=== PATIENT | male | born 1955 ===

== ENCOUNTER 2017-10-04 06:56 | Day surgery (SDC) | payer MEDICARE ==
[2017-09-23 14:01] VITALS: BMI 23.8
[2017-10-04] MEDS ORDERED: Lactated Ringer's 1,000 ML IV ONE (08:00)
[2017-10-04] MEDS ORDERED: Propofol 10 mg/ml Inj (20 ML) ONE (11:21)
[2017-10-04] MEDS ORDERED: Midazolam 2 MG/2 ML VIAL ONE (11:21)
[2017-10-04] MEDS ORDERED: cefTRIAXone (Rocephin) 1 gm Inj IM ONE (11:40)
[2017-10-04 15:21] VITALS: RESP 18
[2017-10-04 15:52] VITALS: BP 114/78; PULSE 76; TEMP 97.4; O2SAT 98
--- NOTE | 2017-10-04 21:25 | OP ---
PROCEDURE DATE: 10/04/2017 PREOPERATIVE DIAGNOSIS: Symptomatic benign prostatic hyperplasia. POSTOPERATIVE DIAGNOSIS: Symptomatic benign prostatic hyperplasia. PROCEDURE: GreenLight laser of the prostate. DESCRIPTION OF PROCEDURE: The patient was placed on the operating room table in dorsal lithotomy position. The area of the groin was draped and prepped in a sterile manner. He was given general anesthesia at this time followed by the introduction of the laser scope under direct vision per urethra into the bladder. Using the laser fiber identified the distal margin of the resection at the level of the verumontanum, when packing identified left and right ureteral orifices and then began the resection of the bladder neck towards the verumontanum, I started 80 mccullough, I finished at 120 mccullough. At the end of the procedure, there was clear opening from the verumontanum directly into the bladder. Blood loss was estimated less than 20 mL. At this time, a #22 three-way Askew was inserted. The patient was taken from the operating room in good condition. Monica Reece MD
== END 2017-10-04 16:00 | disposition home or self-care (01) ==
LOC: H.OPSURG 06:56
PROVIDERS: ATTEND Urology
DX: N40.1 Benign prostatic hyperplasia with lower urinary tract symptoms (principal); E78.5 Hyperlipidemia, unspecified; F41.9 Anxiety disorder, unspecified; N40.0 Benign prostatic hyperplasia without lower urinary tract symptoms
CPT/HCPCS: 52648; J0696; J1885; J2001; J2250; J2270; J2405; J2704; J3010; J7120

== ENCOUNTER 2018-02-22 09:59 | Emergency (ER) | payer OTHER, MEDICARE ==
[2018-02-22 09:59] VITALS: BMI 23.8
[2018-02-22 10:25] VITALS: RESP 18; O2SAT 97
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
[2018-02-22 13:31] VITALS: BP 108/78; PULSE 70; TEMP 97.7
== END 2018-02-22 13:25 | disposition home or self-care (01) ==
LOC: H.ER 09:59
DX: M54.5 Low back pain (principal); M54.2 Cervicalgia; V49.49XA Driver injured in collision with other motor vehicles in traffic accident, initial encounter

== ENCOUNTER 2018-05-18 07:26 | Emergency (ER) | payer MEDICARE, OTHER ==
[2018-05-18 07:44] VITALS: BMI 22.8
[2018-05-18 07:46] VITALS: TEMP 97
--- NOTE | 2018-05-18 08:15 | ED PDOC ---
Lower Extremity Pain/Injury Time Seen by Provider: 05/18/18 08:02 Chief Complaint (Nursing): Lower Extremity Problem/Injury Chief Complaint (Provider): Lower Extremity Problem/Injury History Per: Patient History/Exam Limitations: no limitations Onset/Duration Of Symptoms: Days Current Symptoms Are (Timing): Still Present Additional Complaint(s): Jacob Lainez is a 63 year old male with a past medical history of diabetes and hypertension who is presenting to the ED for evaluation of right foot and toe pain onset 1 month ago. Patient states that he has not taken any medications for pain and denies any injury or trauma to the foot. He reports thats the pain was worsening, which prompted his ED visit and adds that he had not yet seen a doctor regarding this issue. PMD: Dr. Martinez Past Medical History Reviewed: Historical Data, Nursing Documentation, Vital Signs Vital Signs: Last Vital Signs Temp 97 F L 05/18/18 07:46 Pulse 82 05/18/18 07:46 Resp 20 05/18/18 07:46 BP 111/72 05/18/18 07:46 Pulse Ox 99 05/18/18 07:46 - Medical History PMH: Anxiety, Benign Prostatic Hyperplasia (scraping of prostate), Depression, Diabetes, HTN Denies: Chronic Kidney Disease - Surgical History Surgical History: Appendectomy Other surgeries: rotator cuff surgery, back fusion, toe surgery - Family History Family History: States: Unknown Family Hx - Social History Current smoker - smoking cessation education provided: No Alcohol: None Drugs: Denies - Home Medications Home Medications: Ambulatory Orders Medication Instructions Recorded Sodium Chloride [Saline Nasal Mist] 1 - 2 spray NS DAILY #126 ml 09/22/16 ARIPiprazole [Abilify] 5 mg PO BID 09/23/17 Benztropine [Cogentin] 0.5 mg PO DAILY 09/23/17 LORazepam [Ativan] 1 mg PO BID 09/23/17 Tamsulosin [Flomax] 0.4 mg PO DAILY 09/23/17 oxyCODONE/Acetaminophen [Percocet 5 - 325 mg PO Q4 PRN 09/23/17 5/325 mg Tab] Ciprofloxacin [Cipro] 500 mg PO BID 10/04/17 Phenazopyridine [Phenazopyridine 200 mg PO BID 10/04/17 HCl] Cyclobenzaprine [Cyclobenzaprine 10 mg PO TID PRN #15 tab 08/14/18 HCl] Naproxen [Naprosyn] 500 mg PO BID PRN #15 tablet 05/18/18 - Allergies Allergies/Adverse Reactions: Allergies Allergy/AdvReac Type Severity Reaction Status Date / Time moxifloxacin [From Avelox] Allergy Intermediate ITCHING Verified 02/22/18 10:26 Review of Systems ROS Statement: Except As Marked, All Systems Reviewed And Found Negative Musculoskeletal: Positive for: Foot Pain Physical Exam - Reviewed Nursing Documentation Reviewed: Yes Vital Signs Reviewed: Yes - Physical Exam Appears: Positive for: Well, Non-toxic, No Acute Distress Head Exam: Positive for: ATRAUMATIC, NORMAL INSPECTION, NORMOCEPHALIC Skin: Positive for: Normal Color, Warm, DRY Back: Positive for: Normal Inspection. Negative for: L CVA Tenderness, R CVA Tenderness Extremity: Positive for: Normal ROM, Other (right second toe: Localized thickened skin of distal phalanx, no erythema or tenderness). Negative for: Deformity, Swelling Neurologic/Psych: Positive for: Alert, Oriented. Negative for: Motor/Sensory Deficits - ECG O2 Sat by Pulse Oximetry: 99 (RA) Pulse Ox Interpretation: Normal - Other Rad Xray right foot X-Ray: Interpreted by Me, Viewed By Me X-Ray Interpretation: no acute findings Medical Decision Making Medical Decision Making: Time: 8:17 Impression: foot pain, callous of second right toe Plan: --X-Ray right foot Scribe Attestation: Documented by Su Smith, acting as a scribe for Herberth Toribio MD. Provider Scribe Attestation: All medical record entries made by the Scribe were at my direction and personally dictated by me. I have reviewed the chart and agree that the record accurately reflects my personal performance of the history, physical exam, medical decision making, and the department course for this patient. I have also personally directed, reviewed, and agree with the discharge instructions and disposition. Disposition - Clinical Impression Clinical Impression: Toe pain - Patient ED Disposition Is Patient to be Admitted: No Doctor Will See Patient In The: Office Counseled Patient/Family Regarding: Studies Performed, Diagnosis, Need For Followup - Disposition Referrals: Podiatry Clinic [Outside] Disposition: Routine/Home Disposition Time: 10:37 Condition: GOOD Additional Instructions: JACOB LAINEZ, thank you for letting us take care of you today. Your provider was Herberth Toribio MD and you were treated for FOOT PAIN. The emergency medical care you received today was directed at your acute symptoms. If you were prescribed any medication, please fill it and take as directed. It may take se veral days for your symptoms to resolve. Return to the Emergency Department if your symptoms worsen, do not improve, or if you have any other problems. Please contact your doctor or call one of the physicians/clinics you have been referred to that are listed on the Patient Visit Information form that is included in your discharge packet. Bring any paperwork you were given at discharge with you along with any medications you are taking to your follow up visit. Our treatment cannot replace ongoing medical care by a primary care provider outside of the emergency department. Thank you for allowing the [facility] team to be part of your care today. If you had an X-Ray or CT scan: A Radiologist will review the ED reading if any change in treatment is needed we will contact you. If you had a blood, urine, or wound culture: It will take several days for the results, if any change in treatment is needed we will contact you. If you had an STI test: It will take 48 hours for the results. Please call after 1 week if you have not heard back. Prescriptions: Naproxen [Naprosyn] 500 mg PO BID PRN #15 tablet PRN Reason: Pain, Moderate (4-7) Instructions: Foot Sprain (DC)
[2018-05-18 10:55] VITALS: BP 128/78; PULSE 78; RESP 19; O2SAT 98
--- NOTE | 2018-05-18 11:13 | RAD ---
Date of service: 05/18/2018 PROCEDURE: HISTORY: toe pain no injury COMPARISON: None TECHNIQUE: Three views FINDINGS: No fracture or dislocation. No lytic lesion. 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 1 to 2 mm hyperdensity between the 1st and 2nd proximal metatarsals-not apparent on the lateral view.. At 63 this may relate to some vascular calcification. However other ossific debris here and/or old foreign body residual are also differential considerations. No current history provided of possible foreign body. Osseous non foreign body origin is favored. IMPRESSION: No fracture or lytic lesion. 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 1 to 2 mm hyperdensity between the 1st and 2nd proximal metatarsals-not apparent on the lateral view.. At 63 this may relate to some vascular calcification. However other ossific debris here and/or old foreign body residual are also differential considerations. No current history provided of possible foreign body. Osseous non foreign body origin is favored.
== END 2018-05-18 10:56 | disposition home or self-care (01) ==
LOC: H.ER 07:26
DX: M79.671 Pain in right foot (principal); E11.9 Type 2 diabetes mellitus without complications